=== PATIENT | female | born 1990 | race African-American/Black ===

== ENCOUNTER 2021-03-27 11:39 | Emergency (ER) | payer OTHER | END 2021-03-27 12:41 | disposition home or self-care (01) | LOC: CSHERS 11:39 | DX: S90.31XA Contusion of right foot, initial encounter (principal); W20.8XXA Other cause of strike by thrown, projected or falling object, initial encounter; Y99.0 Civilian activity done for income or pay; Y92.89 Other specified places as the place of occurrence of the external cause ==

== ENCOUNTER 2023-12-14 11:40 | Emergency (ER) | payer BC, OTHER ==
[2023-12-14] MEDS ORDERED: Ketorolac Tromethamine 30 MG (1 mL) VIAL ONE (12:31)
== END 2023-12-14 12:31 | disposition home or self-care (01) ==
LOC: CSHERS 11:40
DX: K08.89 Other specified disorders of teeth and supporting structures (principal)
CPT/HCPCS: 96372; J1885

== ENCOUNTER 2025-04-27 16:55 | Emergency (ER) | payer SELFPAY ==
[2025-04-27] MEDS ORDERED: Ketorolac Tromethamine 30 MG (1 mL) VIAL ONE (17:41)
== END 2025-04-27 18:45 | disposition home or self-care (01) ==
LOC: CSHERS 16:55
DX: J06.9 Acute upper respiratory infection, unspecified (principal)
CPT/HCPCS: 71045; 87428; 96372; J1885